=== PATIENT | male | born 1970 | race Caucasian/White ===

== ENCOUNTER 2019-06-28 10:15 | Outpatient (CLI) | payer BC ==
--- NOTE | 2019-06-28 11:05 | RAD ---
CHEST PA AND LATERAL: HISTORY: Dyspnea. FINDINGS: There are no previous exams for comparison. The right hemidiaphragm is elevated. The heart size is normal. No focal areas of consolidation, pneumothoraces, or pleural effusions are seen. No acute os seous abnormalities are seen. There is a right humeral head prosthesis. IMPRESSION: No radiographic evidence of acute cardiopulmonary process. POS: OFF
== END 2019-06-28 10:16 | disposition home or self-care (01) ==
LOC: RAD 10:15
PROVIDERS: ATTEND Internal Medicine
DX: R06.00 Dyspnea, unspecified (principal)
CPT/HCPCS: 71046

== ENCOUNTER 2019-07-24 14:00 | Outpatient (CLI) | payer BC | END 2019-07-24 14:01 | disposition home or self-care (01) | LOC: SLEEPLAB 14:00 | PROVIDERS: ATTEND Internal Medicine | DX: G47.33 Obstructive sleep apnea (adult) (pediatric) (principal); R53.83 Other fatigue; R51 Headache; E66.9 Obesity, unspecified; K21.9 Gastro-esophageal reflux disease without esophagitis; R06.83 Snoring; R35.1 Nocturia; Z68.30 Body mass index [BMI] 30.0-30.9, adult | CPT/HCPCS: 95806 ==

== ENCOUNTER 2023-05-04 05:43 | Day surgery (SDC) | payer BC ==
[2023-04-28 09:15] VITALS: BMI 31.6
[2023-05-04] MEDS ORDERED: Lidocaine 2% 6 ML (Jelly) SYR ONE (06:05)
[2023-05-04] MEDS ORDERED: fentaNYL PF 100 MCG/2 ML SYRINGE ONE (06:05)
[2023-05-04] MEDS ORDERED: Midazolam HCl 2 mg/2 ml Vial ONE (06:05)
[2023-05-04] MEDS ORDERED: Sodium Chloride 0.9% 100 ML ONE ×2 (06:06→06:53)
[2023-05-04] MEDS ORDERED: Vancomycin (BATCH) 1.5 GRAM/300 ML BAG ONE (06:06)
[2023-05-04] MEDS ORDERED: Tranexamic Acid 1,000 MG/10 ML VIAL ONE (06:06)
[2023-05-04] MEDS ORDERED: Ondansetron PF 4 MG/2 ML Vial ONE (06:30)
[2023-05-04] MEDS ORDERED: Ketorolac Tromethamine 30 MG/ML VIAL ONE (06:30)
[2023-05-04] MEDS ORDERED: Dexamethasone 20 MG/5 ML VIAL ONE (06:30)
[2023-05-04] MEDS ORDERED: PROPOFOL 200 MG/20 ML VIAL ONE (06:30)
[2023-05-04] MEDS ORDERED: ePHEDrine Sulfate 50 MG/10 ML VIAL ONE (06:30)
[2023-05-04] MEDS ORDERED: Rocuronium Bromide 10 MG/ML (10ML VIAL) ONE (06:30)
[2023-05-04] MEDS ORDERED: Lidocaine 1% PF 5 ML VIAL ONE (06:30)
[2023-05-04] MEDS ORDERED: CEFAZOLIN 2 GM VIAL ONE (06:53)
[2023-05-04] MEDS ORDERED: HYDROcodone/Acetaminophen 10/325 mg Tablet PO PRN ×2 (07:15)
[2023-05-04] MEDS ORDERED: fentaNYL 50 mcg/mL 1 mL Vial SLOW IVP PRN (07:15)
[2023-05-04] MEDS ORDERED: Ondansetron PF 4 MG/2 ML Vial IVP PRN (07:15)
[2023-05-04] MEDS ORDERED: Zolpidem Tartrate 5 MG TAB PO PRN (07:15)
[2023-05-04] MEDS ORDERED: traMADol HCl 50 MG TAB PO PRN ×2 (07:15)
[2023-05-04] MEDS ORDERED: Ropivacaine 0.2% 550 ML 550 ML NERVE BLCK SCH (07:15)
[2023-05-04] MEDS ORDERED: Promethazine HCl 25 MG/ML VIAL IM PRN (07:15)
[2023-05-04] MEDS ORDERED: fentaNYL 50 mcg/mL 1 mL Vial ONE ×2 (07:43→07:48)
[2023-05-04] MEDS ORDERED: Ropivacaine 0.2% HCl/PF 20 ML ONE (08:55)
[2023-05-04] MEDS ORDERED: Ropivacaine 0.5% HCl/PF (150 MG/30 ML VIAL) ONE (08:55)
[2023-05-04] MEDS ORDERED: SUGAMMADEX SODIUM 200 MG/2 ML VIAL ONE (09:04)
[2023-05-04] MEDS ORDERED: Sevoflurane 250 ML INH ANEST BOTTLE ONE (09:19)
[2023-05-04] MEDS ORDERED: Ketorolac Tromethamine 30 MG/ML VIAL IVP SCH (12:00)
== END 2023-05-04 11:30 | disposition home or self-care (01) ==
LOC: SDC 05:43
PROVIDERS: ATTEND Orthopaedic Surgery
PROC: 0LS40ZZ Reposition Left Upper Arm Tendon, Open Approach (ICD-10-PCS; principal; 2023-05-04)
PROC: 0RRK0JZ Replacement of Left Shoulder Joint with Synthetic Substitute, Open Approach (ICD-10-PCS; principal; 2023-05-04)
DX: M19.012 Primary osteoarthritis, left shoulder (principal); M75.22 Bicipital tendinitis, left shoulder
CPT/HCPCS: A4306; C1713; C1776; J1100; J1885; J2250; J2405; J2704; J2795; J3010; J3370; J3490

== ENCOUNTER 2024-07-20 10:57 | Outpatient (CLI) | payer OTHER | END 2024-07-20 10:58 | disposition home or self-care (01) | LOC: SCSMRI 10:57 | PROVIDERS: ATTEND Family Medicine | DX: S89.91XD Unspecified injury of right lower leg, subsequent encounter (principal); S83.241D Other tear of medial meniscus, current injury, right knee, subsequent encounter; S80.01XD Contusion of right knee, subsequent encounter; M71.21 Synovial cyst of popliteal space [Baker], right knee; M17.11 Unilateral primary osteoarthritis, right knee; R93.6 Abnormal findings on diagnostic imaging of limbs ==

== ENCOUNTER 2024-08-01 10:30 | Outpatient (CLI) | payer OTHER ==
[2024-08-01 11:45] LABS: #Basophils 0.06 10x3/uL (0.0-0.2); %Basophils 0.7 % (0.0-1.0); %Eosinophils 1.5 % (0.0-10.0); %Lymphocytes 31.3 % (21.0-51.0); %Neutrophils 57.3 % (42.0-75.0); Hematocrit 45.2 % (42.0-52.0); Hemoglobin 15.2 g/dL (14.0-18.0); Mean Corpuscular HGB CONC 33.6 g/dL (32.0-36.0); Mean Corpuscular Volume 83.4 fL (78.0-98.0); Mean Platelet Volume 9.2 fL (7.4-10.4); Platelet Count 192 10x3/uL (130-400); RBC Distribution Width 12.3 % (11.5-14.5); Red Blood Cell (RBC) Count 5.42 mill/uL (4.70-6.10)
[2024-08-01 12:00] LABS: Anion Gap 15 mmol/L (10-20); BUN (Urea Nitrogen) 15 mg/dL (8.4-25.7); Calc. Creatinine Clearance 0 mL/min (70-130); Calcium 9.5 mg/dL (7.8-10.44); Carbon Dioxide 24 mmol/L (22-29); Chloride 105 mmol/L (98-107); Estimated GFR 85; Glucose 86 mg/dL (70-105); Potassium 4.3 mmol/L (3.5-5.1); Sodium 140 mmol/L (136-145)
== END 2024-08-01 10:31 | disposition home or self-care (01) ==
LOC: LABBT 10:30
PROVIDERS: ATTEND Student in an Organized Health Care Education/Training Program
DX: Z01.818 Encounter for other preprocedural examination (principal); S83.241A Other tear of medial meniscus, current injury, right knee, initial encounter
CPT/HCPCS: 71046; 80048; 85025; 93005; 93010

== ENCOUNTER 2024-08-07 05:45 | Day surgery (SDC) | payer OTHER ==
[2024-08-01 10:45] VITALS: BMI 30.9
[2024-08-07] MEDS ORDERED: Midazolam HCl 2 mg/2 ml Vial ONE (06:29)
[2024-08-07] MEDS ORDERED: fentaNYL PF 100 MCG/2 ML SYRINGE ONE ×2 (06:29→06:33)
[2024-08-07] MEDS ORDERED: PROPOFOL 20 ML ONE (06:29)
[2024-08-07] MEDS ORDERED: Lidocaine 1% PF 5 ML VIAL ONE (06:30)
[2024-08-07] MEDS ORDERED: Dexamethasone 4 mg/ml Vial ONE (06:30)
[2024-08-07] MEDS ORDERED: Ondansetron PF 4 MG/2 ML Vial ONE (06:30)
[2024-08-07] MEDS ORDERED: CEFAZOLIN 2 GM VIAL ONE (06:57)
[2024-08-07] MEDS ORDERED: Bupivacaine 0.25% HCL 30 ML VIAL ONE (06:57)
[2024-08-07] MEDS ORDERED: EPINEPHrine 1 MG/ML VIAL ONE (06:57)
[2024-08-07] MEDS ORDERED: Bupivacaine PF 0.5% 30 ML VIAL ONE (06:58)
[2024-08-07] MEDS ORDERED: Lidocaine 1% (PF) 30 ML VIAL ONE (06:58)
[2024-08-07] MEDS ORDERED: Ketorolac Tromethamine 30 MG (1 mL) VIAL ONE (08:43)
== END 2024-08-07 10:50 | disposition home or self-care (01) ==
LOC: SDC 05:45
PROVIDERS: ATTEND Student in an Organized Health Care Education/Training Program
PROC: 0SBC4ZZ Excision of Right Knee Joint, Percutaneous Endoscopic Approach (ICD-10-PCS; principal; 2024-08-07)
DX: S83.241A Other tear of medial meniscus, current injury, right knee, initial encounter (principal); S83.281A Other tear of lateral meniscus, current injury, right knee, initial encounter; M17.11 Unilateral primary osteoarthritis, right knee; M22.41 Chondromalacia patellae, right knee; M94.261 Chondromalacia, right knee; E07.9 Disorder of thyroid, unspecified; G43.909 Migraine, unspecified, not intractable, without status migrainosus; Z98.890 Other specified postprocedural states; X58.XXXA Exposure to other specified factors, initial encounter; Z79.890 Hormone replacement therapy; Z79.899 Other long term (current) drug therapy
CPT/HCPCS: J0171; J0665; J1100; J1885; J2250; J2405; J2704